=== PATIENT | female | born 1940 | race Two or more races ===

== ENCOUNTER 2021-09-24 12:34 | Inpatient (IN) | payer OTHER ==
[~2021-09-24] VITALS: Ht 160 cm; Wt 91.5 kg
[2021-09-24] MEDS ORDERED: IPRATROPIUM BROM 0.5 MG/2.5ML INH SOL NEB ONE ×2 (13:00→18:30)
[2021-09-24] MEDS ORDERED: methylPREDNISolone SOD SUCC 125 MG/2 ML VL IV ONE (13:00)
[2021-09-24] MEDS ORDERED: ALBUTEROL SULF 2.5 MG/0.5ML(0.5%) NEB SOLN NEB ONE ×2 (13:00→18:30)
[2021-09-24 15:03] LABS: Basophils # (auto) 0.1 10 ^3/uL (0-0.2); Basophils % (auto) 1.1 % (0.0-2.0); Eosinophils # (auto) 0.1 10 ^3/uL (0-0.8); Eosinophils % (auto) 0.5 % (0.0-7.0); Hematocrit 30.1 % (36.0-46.0); Hemoglobin 9.6 g/dL (12.2-16.2); Lymphocytes # (auto) 1.3 10 ^3/uL (0.4-5.4); Lymphocytes % (auto) 10.9 % (10.0-50.0); Mean Corpuscular Hemoglobin 29.2 pg (28.0-32.0); Mean Corpuscular Hgb Conc. 31.8 g/dL (32.0-36.0); Mean Corpuscular Volume 91.8 fL (80.0-100.0); Monocytes # (auto) 0.3 10 ^3/uL (0-1.3); Monocytes % (auto) 2.3 % (0.0-12.0); Neutrophils % (auto) 85.2 % (37.0-80.0); Red Blood Cells 3.28 10^6/uL (4.0-5.20); Red Cell Distribution Width 14.7 % (11.8-14.3); White Blood Cell 11.7 10^3/uL (4.4-10.8)
[2021-09-24 15:08] LABS: Albumin 3.4 g/dL (3.4-5.0); Calcium 9.3 mg/dL (8.5-10.1); Potassium 5.3 mmol/L (3.5-5.1)
[2021-09-24 15:23] LABS: BUN/Creatinine Ratio 20.8; Bilirubin, Total 0.2 mg/dL (0.2-1.0); Total Protein 6.7 g/dL (6.4-8.2)
[2021-09-24] MEDS ORDERED: LEVO-28 PO (16:56)
[2021-09-24] MEDS ORDERED: NITROGLYCERIN 0.4 MG SL TAB SL PRN (18:15)
[2021-09-24] MEDS ORDERED: MORPHINE SULFATE INJECTION 2 MG/ML SYRG IV PRN ×2 (18:15→18:30)
[2021-09-24] MEDS ORDERED: HYDROcodone-ACET 5/325MG TAB PO ONE (18:30)
[2021-09-24] MEDS ORDERED: LORazepam 0.5 MG TAB PO PRN (18:30)
[2021-09-24] MEDS ORDERED: hydrALAZINE HCL 20 MG/ML VL IV PRN (18:30)
[2021-09-24] MEDS ORDERED: ACETAMINOPHEN 325 MG TAB PO PRN (18:30)
[2021-09-24] MEDS ORDERED: LACTULOSE 20Gm/30ML SOLN PO PRN (18:30)
[2021-09-24] MEDS ORDERED: ONDANSETRON HCL 4 MG/2 ML VIAL IV PRN (18:30)
[2021-09-24] MEDS ORDERED: FOLIC ACID 1 MG TAB PO ONE (18:30)
[2021-09-24] MEDS ORDERED: PANTOPRAZOLE 40 MG/10 ML VIAL INJ IV ONE (18:30)
[2021-09-24] MEDS ORDERED: SUCRALFATE 1 GM/10 ML ORAL SUSP PO ONE (18:30)
[2021-09-24] MEDS ORDERED: MONTELUKAST SODIUM 10 MG TAB PO ONE (18:30)
[2021-09-24] MEDS ORDERED: DOCUSATE SOD 100 MG CAP PO PRN (18:30)
[2021-09-24] MEDS ORDERED: MULTIPLE VITAMINS W/ MINERALS TAB PO ONE (18:30)
[2021-09-24] MEDS ORDERED: InsuLIN REG 1unit/0.01ml Soln (100units/ml) IV ONE (18:45)
[2021-09-24] MEDS ORDERED: FUROSEMIDE 40 MG/4 ML VIAL IV ONE (18:45)
[2021-09-24] MEDS ORDERED: CALCIUM CHL 100MG/ML 1,000 MG in D5W 5% 100 ML IV ONE (18:45)
[2021-09-24] MEDS ORDERED: cefTRIAXone 1GM/50ML D5W 50 ML IV ONE (19:45)
[2021-09-24] MEDS ORDERED: AZITHROMYCIN 500MG/ 250ML 250 ML IV ONE (20:30)
[2021-09-24] MEDS: SODIUM CHLORIDE 0.9% 1,000 ML IV SCH (21:50)
[2021-09-24] MEDS: SUCRALFATE 1 GM/10 ML ORAL SUSP PO SCH (21:51)
[2021-09-24] MEDS: methylPREDNISolone SOD SUCC 40 MG/ML VL IV SCH (21:51)
[2021-09-24] MEDS: ATORVASTATIN 20 MG TAB PO SCH (21:51)
[2021-09-24] MEDS: MONTELUKAST SODIUM 10 MG TAB PO SCH (21:52)
[2021-09-24] MEDS ORDERED: ACETYLCYSTEINE 10 %(100MG/ML) SOL 4ML NEB SCH (22:00)
[2021-09-24] MEDS ORDERED: LABETALOL HCL 5 MG/ML 4ML SYRINGE IV PRN (22:15)
[2021-09-24] MEDS ORDERED: SODIUM ZIRCONIUM CYCL 10 GM PAK PO ONE (22:15)
[2021-09-24] MEDS ORDERED: NIFEdipine ER 30 MG TAB PO ONE (22:15)
[2021-09-24] MEDS: InsuLIN REG 1unit/0.01ml Soln (100units/ml) SC SCH (22:30)
[2021-09-24] MEDS: IPRATROPIUM BROM 0.5 MG/2.5ML INH SOL NEB SCH (22:59)
[2021-09-24] MEDS: ALBUTEROL SULF 2.5 MG/0.5ML(0.5%) NEB SOLN NEB SCH (22:59)
[2021-09-24 23:33] LABS: Potassium 4.6 mmol/L (3.5-5.1)
[2021-09-24 23:39] LABS: INR 0.94 (0.9-1.15); Partial Thromboplastin Time 22.5 sec (23.6-33.0)
[2021-09-24 23:43] LABS: Phosphorus 3.1 mg/dL (2.5-4.90)
[2021-09-25] VITALS (8 sets, daily range): BP systolic 127–175; BP diastolic 75–89
[2021-09-25] MEDS: IPRATROPIUM BROM 0.5 MG/2.5ML INH SOL NEB SCH ×6 (03:00→22:21)
[2021-09-25] MEDS: ALBUTEROL SULF 2.5 MG/0.5ML(0.5%) NEB SOLN NEB SCH ×6 (03:00→22:21)
[2021-09-25] MEDS ORDERED: FUROSEMIDE 20 MG/2 ML VIAL IV SCH (06:00)
[2021-09-25] MEDS: methylPREDNISolone SOD SUCC 40 MG/ML VL IV SCH ×2 (06:13→14:15)
[2021-09-25] MEDS: SUCRALFATE 1 GM/10 ML ORAL SUSP PO SCH ×4 (06:14→22:10)
[2021-09-25] MEDS: SODIUM ZIRCONIUM CYCL 10 GM PAK PO SCH ×2 (06:14→14:15)
[2021-09-25] MEDS: InsuLIN REG 1unit/0.01ml Soln (100units/ml) SC SCH ×4 (06:17→21:58)
[2021-09-25 07:27] LABS: Urine Bacteria NONE SEEN /hpf (None Seen); Urine Blood 3+ /uL (Negative); Urine Mucus FEW (None Seen); Urine Specific Gravity 1.015 (1.001-1.035); Urine WBC 137 /hpf (0 - 5)
[2021-09-25 07:34] LABS: Alcohol, Urine < 3.0 mg/dL (0-10); Amphetamine Screen, Urine NEGATIVE (NEGATIVE); Barbiturate Scree,Urine NEGATIVE (NEGATIVE); Benzodiazephine Screen, Urine NEGATIVE (NEGATIVE); Cannabinoid Screen, Urine NEGATIVE (NEGATIVE); Opiate Scree,Urine NEGATIVE (NEGATIVE); Phencyclidine Screen, Urine NEGATIVE (NEGATIVE)
[2021-09-25 07:37] LABS: Cocaine Screen, Urine NEGATIVE (NEGATIVE)
[2021-09-25 08:02] LABS: Basophils # (auto) 0 10 ^3/uL (0-0.2); Basophils % (auto) 0.1 % (0.0-2.0); Eosinophils # (auto) 0 10 ^3/uL (0-0.8); Hematocrit 30.2 % (36.0-46.0); Hemoglobin 9.7 g/dL (12.2-16.2); Lymphocytes # (auto) 1.1 10 ^3/uL (0.4-5.4); Lymphocytes % (auto) 8.9 % (10.0-50.0); Mean Corpuscular Hemoglobin 28.9 pg (28.0-32.0); Mean Corpuscular Hgb Conc. 32.1 g/dL (32.0-36.0); Monocytes # (auto) 0.1 10 ^3/uL (0-1.3); Red Blood Cells 3.35 10^6/uL (4.0-5.20); Red Cell Distribution Width 14.8 % (11.8-14.3); White Blood Cell 12.2 10^3/uL (4.4-10.8)
[2021-09-25 08:16] LABS: INR 0.97 (0.9-1.15); Partial Thromboplastin Time 22.3 sec (23.6-33.0)
[2021-09-25 08:17] LABS: Potassium 3.9 mmol/L (3.5-5.1)
[2021-09-25 08:22] LABS: Albumin 3.4 g/dL (3.4-5.0); BUN/Creatinine Ratio 20.9; Bilirubin, Total 0.3 mg/dL (0.2-1.0); Calcium 9.7 mg/dL (8.5-10.1); Magnesium 2.2 mg/dL (1.6-2.6); Phosphorus 3.2 mg/dL (2.5-4.90); Total Protein 6.9 g/dL (6.4-8.2); Uric Acid 5.2 mg/dL (2.6-6.0)
[2021-09-25] MEDS: PANTOPRAZOLE 40 MG/10 ML VIAL INJ IV SCH (09:44)
[2021-09-25] MEDS: cefTRIAXone 1GM/50ML D5W 50 ML IV SCH (09:45)
[2021-09-25] MEDS: CHOLECALCIFEROL (VITD3) 2,000 UNIT CAP/TAB PO SCH (09:47)
[2021-09-25] MEDS: FOLIC ACID 1 MG TAB PO SCH (09:47)
[2021-09-25] MEDS: CYANOCOBALAMIN 500 MCG TAB PO SCH (09:47)
[2021-09-25] MEDS: ASPirin 81 mg TAB PO SCH (09:47)
[2021-09-25] MEDS: NIFEdipine ER 30 MG TAB PO SCH (09:48)
[2021-09-25] MEDS: MULTIPLE VITAMINS W/ MINERALS TAB PO SCH (09:48)
[2021-09-25] MEDS: MAGNESIUM OXIDE 400 MG TAB PO SCH ×2 (09:48→22:10)
[2021-09-25] MEDS: ALLOPURINOL 100 MG TAB PO SCH (09:48)
[2021-09-25] MEDS ORDERED: ENOXAPARIN SOD 40 MG/0.4 ML SYRINGE SC SCH (10:00)
[2021-09-25] MEDS: AZITHROMYCIN 500MG/ 250ML 250 ML IV SCH (11:00)
[2021-09-25] MEDS: SODIUM CHLORIDE 0.9% 1,000 ML IV SCH (14:45)
[2021-09-25] MEDS ORDERED: methylPREDNISolone SOD SUCC 40 MG/ML VL IV SCH (18:15)
[2021-09-25] MEDS: MONTELUKAST SODIUM 10 MG TAB PO SCH (21:57)
[2021-09-25] MEDS: ATORVASTATIN 20 MG TAB PO SCH (22:10)
[2021-09-25] MEDS: methylPREDNISolone SOD SUCC 125 MG/2 ML VL IV SCH (22:10)
[2021-09-25] MEDS: BUDESONIDE (INHALATION) 0.5 MG/2 ML NEB NEB SCH (22:21)
[2021-09-26] MEDS: IPRATROPIUM BROM 0.5 MG/2.5ML INH SOL NEB SCH ×4 (02:24→13:51)
[2021-09-26] MEDS: ALBUTEROL SULF 2.5 MG/0.5ML(0.5%) NEB SOLN NEB SCH ×4 (02:24→13:51)
[2021-09-26 05:00] VITALS: BP 137/70
[2021-09-26] MEDS: methylPREDNISolone SOD SUCC 125 MG/2 ML VL IV SCH ×2 (05:45→15:35)
[2021-09-26] MEDS: BUDESONIDE (INHALATION) 0.5 MG/2 ML NEB NEB SCH (06:21)
[2021-09-26] MEDS: SUCRALFATE 1 GM/10 ML ORAL SUSP PO SCH ×2 (06:25→12:16)
[2021-09-26] MEDS: InsuLIN REG 1unit/0.01ml Soln (100units/ml) SC SCH ×2 (06:29→12:16)
[2021-09-26 06:38] LABS: Basophils # (auto) 0 10 ^3/uL (0-0.2); Eosinophils # (auto) 0 10 ^3/uL (0-0.8); Hemoglobin 9.2 g/dL (12.2-16.2); Lymphocytes # (auto) 0.6 10 ^3/uL (0.4-5.4); Lymphocytes % (auto) 5.2 % (10.0-50.0); Mean Corpuscular Hemoglobin 29.8 pg (28.0-32.0); Mean Corpuscular Volume 90.2 fL (80.0-100.0); Monocytes # (auto) 0.3 10 ^3/uL (0-1.3); Monocytes % (auto) 2.1 % (0.0-12.0); Neutrophils # (auto) 11.2 10 ^3/uL (1.6-8.6); Neutrophils % (auto) 92.7 % (37.0-80.0); Red Cell Distribution Width 14.6 % (11.8-14.3); White Blood Cell 12.1 10^3/uL (4.4-10.8)
[2021-09-26 06:57] LABS: Albumin 3.5 g/dL (3.4-5.0); Calcium 9.7 mg/dL (8.5-10.1); Potassium 4.2 mmol/L (3.5-5.1)
[2021-09-26 07:01] LABS: BUN/Creatinine Ratio 26.8; Bilirubin, Total 0.3 mg/dL (0.2-1.0); Total Protein 6.7 g/dL (6.4-8.2)
[2021-09-26] MEDS: PANTOPRAZOLE 40 MG/10 ML VIAL INJ IV SCH (09:02)
[2021-09-26 09:03] VITALS: BP 133/99
[2021-09-26] MEDS: cefTRIAXone 1GM/50ML D5W 50 ML IV SCH (09:03)
[2021-09-26] MEDS: MAGNESIUM OXIDE 400 MG TAB PO SCH (09:05)
[2021-09-26] MEDS: NIFEdipine ER 30 MG TAB PO SCH (09:06)
[2021-09-26] MEDS: CYANOCOBALAMIN 500 MCG TAB PO SCH (09:07)
[2021-09-26] MEDS: MULTIPLE VITAMINS W/ MINERALS TAB PO SCH (09:07)
[2021-09-26] MEDS: CHOLECALCIFEROL (VITD3) 2,000 UNIT CAP/TAB PO SCH (09:07)
[2021-09-26] MEDS: FOLIC ACID 1 MG TAB PO SCH (09:07)
[2021-09-26] MEDS: ASPirin 81 mg TAB PO SCH (09:08)
[2021-09-26] MEDS: ALLOPURINOL 100 MG TAB PO SCH (09:08)
[2021-09-26] MEDS ORDERED: ALLO100T (09:53)
[2021-09-26] MEDS ORDERED: AMLO-489 (09:53)
[2021-09-26] MEDS ORDERED: PATI1POW (09:53)
[2021-09-26] MEDS ORDERED: INSU100I61 (09:53)
[2021-09-26] MEDS ORDERED: INSLANTI SC (09:54)
[2021-09-26] MEDS ORDERED: ASPI1CHW15 PO (09:54)
[2021-09-26] MEDS ORDERED: IPRA0.03 (09:54)
[2021-09-26] MEDS ORDERED: ALBU0.084 NEB (09:54)
[2021-09-26] MEDS ORDERED: PRED20TA2 PO (09:54)
[2021-09-26] MEDS: AZITHROMYCIN 500MG/ 250ML 250 ML IV SCH (11:11)
[2021-09-26 12:18] LABS: Magnesium 2.4 mg/dL (1.6-2.6); Phosphorus 3.5 mg/dL (2.5-4.90)
[2021-09-26 13:00] VITALS: BP 136/69
[2021-09-26 14:00] VITALS: BP 133/99
[2021-09-27 12:21] LABS: Hepatitis C Antibody Negative (Negative)
== END 2021-09-26 15:35 | disposition home health service (06) | DRG 189 ==
LOC: ER 12:34 → EDBD 12:34 → ER 15:11 → OVERFLOW 18:13 → EAST 09-25 03:02
PROVIDERS: ADMIT Hospitalist; ATTEND Hospitalist
DX: J96.20 Acute and chronic respiratory failure, unspecified whether with hypoxia or hypercapnia (principal); N17.0 Acute kidney failure with tubular necrosis; J44.1 Chronic obstructive pulmonary disease with (acute) exacerbation; N18.4 Chronic kidney disease, stage 4 (severe); J84.9 Interstitial pulmonary disease, unspecified; D63.1 Anemia in chronic kidney disease; K21.9 Gastro-esophageal reflux disease without esophagitis; M1A.9XX0 Chronic gout, unspecified, without tophus (tophi); E87.5 Hyperkalemia; E11.22 Type 2 diabetes mellitus with diabetic chronic kidney disease; E11.40 Type 2 diabetes mellitus with diabetic neuropathy, unspecified; E78.5 Hyperlipidemia, unspecified; E66.9 Obesity, unspecified; F41.9 Anxiety disorder, unspecified; I12.9 Hypertensive chronic kidney disease with stage 1 through stage 4 chronic kidney disease, or unspecified chronic kidney disease; Z20.822 Contact with and (suspected) exposure to COVID-19; Z68.35 Body mass index [BMI] 35.0-35.9, adult; Z82.3 Family history of stroke; Z87.891 Personal history of nicotine dependence; Z88.5 Allergy status to narcotic agent; Z88.1 Allergy status to other antibiotic agents; Z79.84 Long term (current) use of oral hypoglycemic drugs
CPT/HCPCS: 36415; 36600; 71045; 76775; 80053; 80061; 80307; 81001; 82306; 82728; 82805; 82962; 83036; 83615; 83690; 83735; 83880; 83970; 84100; 84132; 84443; 84484; 84550; 85025; 85379; 85610; 85730; 86803; 87040; 87086; 87340; 93005; 94640; 96374; 99291; C9113; G0378; J0696; J1815; J7060